=== PATIENT | female | born 1960 | race Two or more races ===

== ENCOUNTER 2017-07-17 08:39 | Day surgery (SDC) | payer OTHER ==
[2017-07-16 12:30] LABS: Urine RBC None Seen /hpf (0 - 4)
[2017-07-16 12:53] LABS: Basophils # (auto) 0 uL; Basophils % (auto) 1.2 % (0.0-2.0); Eosinophils # (auto) 0.1 uL; Eosinophils % (auto) 1.8 % (0.0-7.0); Hematocrit 42.9 % (36.0-46.0); Hemoglobin 14.1 g/dL (12.2-16.2); Lymphocytes % (auto) 28.9 % (10.0-50.0); Mean Corpuscular Hemoglobin 28.3 pg (28.0-32.0); Mean Corpuscular Volume 85.8 fL (80.0-100.0); Mean Platelet Volume 8.8 fL (6.9-10.8); Monocytes # (auto) 0.3 uL; Monocytes % (auto) 10.2 % (0.0-12.0); Neutrophils % (auto) 57.9 % (37.0-80.0); Platelet Count (auto) 177 10^3/uL (140-450); Red Cell Distribution Width 15.1 % (11.8-14.3); White Blood Cell 3.4 10^3/uL (4.4-10.8)
[2017-07-16 13:09] LABS: INR 0.95 (0.9-1.15); Partial Thromboplastin Time 26.1 sec (22.64-33.71); Prothrombin Time 10.4 sec (9.37-12.3)
[2017-07-16 13:15] LABS: BUN/Creatinine Ratio 14.5; Calcium 8.8 mg/dL (8.5-10.1); Potassium 3.2 mmol/L (3.5-5.1)
[2017-07-16 13:19] LABS: Urine Bilirubin Negative (Negative); Urine Blood Negative /uL (Negative); Urine Color Yellow (Yellow); Urine Glucose Normal (Normal); Urine Ketone Negative (Negative); Urine Nitrite Negative (Negative); Urine Squamous Epithelial Cell FEW /hpf (<5); Urine Urobilinogen Normal (Negative); Urine pH 6.5 (5.0-8.0)
[~2017-07-17] VITALS: Ht 160 cm; Wt 56.2 kg
[~2017-07-17 08:39] MED LIST: SIMV10TA84 PO
[2017-07-17] MEDS ORDERED: ceFAZolin 1GM/50ML D5W 50 ML IV ONE (09:06)
[2017-07-17] MEDS ORDERED: LIDOCAINE 2% JELLY 11ml (GLYDO) ONE (10:26)
[2017-07-17] MEDS ORDERED: MIDAZOLAM HCL 1MG/1ML-2 ML VIAL ONE (10:28)
[2017-07-17] MEDS ORDERED: fentaNYL CITRATE 100 MCG/2 ML VL ONE (10:28)
[2017-07-17] MEDS ORDERED: MEPERIDINE HCL (50 MG/ML) 1 ML VIAL ONE (10:28)
[2017-07-17] MEDS ORDERED: MITOMYCIN 40 MG in STERILE WATER 60 ML IS ONE (10:30)
[2017-07-17] MEDS ORDERED: DEXAMETHASONE SOD PHOS 10MG/1ML VIAL INJ ONE (10:47)
[2017-07-17] MEDS ORDERED: PROPOFOL 10 MG/ML 20 ML IV ONE (10:48)
[2017-07-17 12:24] VITALS: BP 122/74
== END 2017-07-17 12:30 | disposition home or self-care (01) ==
LOC: SUR 08:39
PROVIDERS: ATTEND Urology
DX: C67.9 Malignant neoplasm of bladder, unspecified (principal); Z90.49 Acquired absence of other specified parts of digestive tract
CPT/HCPCS: 36415; 52224; 80048; 81001; 85025; 85610; 85730; 87086; 88305; J0690; J1100; J2175; J2250; J2704; J3010; J9280